=== PATIENT | male | born 1975 | race Caucasian/White ===

== ENCOUNTER 2019-12-30 16:49 | Emergency (ER) | payer OTHER ==
[~2019-12-30] VITALS: Ht 170.2 cm; Wt 81.7 kg
== END 2019-12-30 19:13 | disposition home or self-care (01) ==
LOC: ER 16:49
DX: S91.011A Laceration without foreign body, right ankle, initial encounter (principal); Z23 Encounter for immunization; W01.0XXA Fall on same level from slipping, tripping and stumbling without subsequent striking against object, initial encounter
CPT/HCPCS: 12002; 90471; 90714; 99282-25